=== PATIENT | male | born 1995 ===

== ENCOUNTER 2018-05-27 09:33 | Outpatient (CLI) | payer OTHER ==
[~2018-05-27] VITALS: Ht 167.6 cm; Wt 59.0 kg
== END 2018-05-27 09:45 | disposition home or self-care (01) ==
LOC: OFIC 805 09:33
DX: J32.8 Other chronic sinusitis (principal); J33.8 Other polyp of sinus; R09.81 Nasal congestion

== ENCOUNTER 2018-07-19 08:47 | Outpatient (CLI) | payer OTHER ==
[~2018-07-19] VITALS: Ht 152.4 cm; Wt 59.0 kg
== END 2018-07-19 09:05 | disposition home or self-care (01) ==
LOC: OFIC 805 08:47
DX: J33.8 Other polyp of sinus (principal); R09.81 Nasal congestion; J32.8 Other chronic sinusitis

== ENCOUNTER 2018-07-19 10:30 | Outpatient (CLI) | payer OTHER | END 2018-07-19 12:25 | disposition home or self-care (01) | LOC: LAB 10:30 | DX: J32.4 Chronic pansinusitis (principal) ==

== ENCOUNTER 2018-08-24 10:08 | Outpatient (CLI) | payer OTHER ==
[~2018-08-24] VITALS: Ht 152.4 cm; Wt 59.0 kg
== END 2018-08-24 10:15 | disposition home or self-care (01) ==
LOC: OFIC 805 10:08
DX: J33.8 Other polyp of sinus (principal); J32.8 Other chronic sinusitis; R09.81 Nasal congestion